=== PATIENT | female | born 1960 | race Caucasian/White ===

== ENCOUNTER → 2019-10-10 10:03 | Outpatient (BNVA) | payer MEDICARE, SELFPAY | PROVIDERS: Family Provider Family Medicine; PCP Internal Medicine Rheumatology; Visit Provider Internal Medicine Rheumatology | DX: L40.50 Arthropathic psoriasis, unspecified (principal); L40.8 Other psoriasis; M79.7 Fibromyalgia; M17.12 Unilateral primary osteoarthritis, left knee; M81.0 Age-related osteoporosis without current pathological fracture | CPT/HCPCS: 99213 ==

== ENCOUNTER → 2020-03-14 10:58 | Outpatient (BNVA) | payer MEDICARE, SELFPAY | PROVIDERS: Family Provider Family Medicine; PCP Family Medicine; Visit Provider Internal Medicine Rheumatology | DX: L40.50 Arthropathic psoriasis, unspecified (principal); L40.8 Other psoriasis; Z79.899 Other long term (current) drug therapy; M81.0 Age-related osteoporosis without current pathological fracture; M79.7 Fibromyalgia; M47.816 Spondylosis without myelopathy or radiculopathy, lumbar region | CPT/HCPCS: 36415; 80076; 82306; 82310; 82565; 85025; 85651; 86140; 99214 ==

== ENCOUNTER → 2020-10-01 10:48 | Outpatient (BNVA) | payer MEDICARE, SELFPAY | PROVIDERS: Family Provider Family Medicine; PCP Family Medicine; Visit Provider Internal Medicine Rheumatology | DX: L40.50 Arthropathic psoriasis, unspecified (principal); L40.9 Psoriasis, unspecified; M81.0 Age-related osteoporosis without current pathological fracture; M79.7 Fibromyalgia; M47.816 Spondylosis without myelopathy or radiculopathy, lumbar region; G03.8 Meningitis due to other specified causes; Z79.899 Other long term (current) drug therapy; Z87.891 Personal history of nicotine dependence | CPT/HCPCS: 99214 ==

== ENCOUNTER → 2021-01-28 13:38 | Outpatient (BNVA) | payer MEDICARE, SELFPAY | PROVIDERS: Family Provider Family Medicine; PCP Family Medicine; Visit Provider Internal Medicine Rheumatology | DX: L40.50 Arthropathic psoriasis, unspecified (principal); L40.9 Psoriasis, unspecified; M81.0 Age-related osteoporosis without current pathological fracture; M79.7 Fibromyalgia; Z79.899 Other long term (current) drug therapy; Z87.891 Personal history of nicotine dependence | CPT/HCPCS: 99214 ==

== ENCOUNTER → 2021-05-21 13:39 | Outpatient (BNVA) | payer MEDICARE, SELFPAY | PROVIDERS: Family Provider Family Medicine; PCP Family Medicine; Visit Provider Internal Medicine Rheumatology | DX: L40.50 Arthropathic psoriasis, unspecified (principal); L40.9 Psoriasis, unspecified; Z79.899 Other long term (current) drug therapy; M81.0 Age-related osteoporosis without current pathological fracture; M79.7 Fibromyalgia; M47.896 Other spondylosis, lumbar region; G03.9 Meningitis, unspecified; Z71.89 Other specified counseling; Z87.891 Personal history of nicotine dependence | CPT/HCPCS: 99214 ==

== ENCOUNTER → 2022-05-19 14:40 | Outpatient (BNVA) | payer OTHER, SELFPAY | PROVIDERS: Family Provider Family Medicine; PCP Family Medicine; Visit Provider Internal Medicine Rheumatology | DX: Z79.899 Other long term (current) drug therapy (principal); L40.50 Arthropathic psoriasis, unspecified; M81.0 Age-related osteoporosis without current pathological fracture | CPT/HCPCS: 80053; 85025 ==

== ENCOUNTER → 2022-11-05 14:33 | Outpatient (BNVA) | payer OTHER, SELFPAY | PROVIDERS: Family Provider Family Medicine; PCP Family Medicine; Visit Provider Internal Medicine Rheumatology | DX: Z79.899 Other long term (current) drug therapy (principal); L40.50 Arthropathic psoriasis, unspecified | CPT/HCPCS: 36415; 80076; 82565; 85025; 86140 ==

== ENCOUNTER → 2023-02-23 13:37 | Outpatient (BNVA) | payer OTHER, SELFPAY | PROVIDERS: Family Provider Family Medicine; PCP Family Medicine; Visit Provider Internal Medicine Rheumatology | DX: Z79.899 Other long term (current) drug therapy (principal); L40.50 Arthropathic psoriasis, unspecified | CPT/HCPCS: 36415; 80076; 82565; 85025; 86140 ==

== ENCOUNTER → 2023-05-25 15:01 | Outpatient (BNVA) | payer OTHER, SELFPAY | PROVIDERS: Family Provider Family Medicine; PCP Family Medicine; Visit Provider Internal Medicine Rheumatology | DX: Z79.899 Other long term (current) drug therapy (principal); L40.50 Arthropathic psoriasis, unspecified | CPT/HCPCS: 36415; 80076; 82310; 82565; 83735; 84100; 84132; 85025; 86140 ==

== ENCOUNTER → 2023-11-17 12:21 | Outpatient (BNVA) | payer OTHER, SELFPAY | PROVIDERS: Family Provider Family Medicine; PCP Family Medicine; Visit Provider Internal Medicine Rheumatology | DX: L40.50 Arthropathic psoriasis, unspecified (principal); Z79.899 Other long term (current) drug therapy | CPT/HCPCS: 36415; 80076; 82565; 85025; 86140 ==

== ENCOUNTER → 2024-05-17 14:40 | Outpatient (BNVA) | payer OTHER, SELFPAY | PROVIDERS: Family Provider Family Medicine; PCP Family Medicine; Visit Provider Internal Medicine Rheumatology | DX: Z79.899 Other long term (current) drug therapy (principal); L40.50 Arthropathic psoriasis, unspecified | CPT/HCPCS: 36415; 80076; 82565; 85025; 85651; 86140 ==